=== PATIENT | female | born 1990 | race Caucasian/White ===

== ENCOUNTER → 2020-02-12 14:40 | Outpatient (CLI) | payer BC, SELFPAY ==
[2020-02-12 16:12] LABS: Free T3 2.6 pg/mL (2.18-3.98); T4 Free Direct 0.98 ng/dL (0.76-1.46); T4 Total, Thyroxin 7.4 ug/dL (4.8-13.9); Thyroid Stim Hormone (TSH) 1.96 uIU/mL (0.358-3.74)
[2020-02-18 14:08] LABS: Age Gdln ACOG Testing 21-29 (.)
[2020-02-18 15:57] LABS: HPV Reflexed? NOT INDICATED
== END ==
PROVIDERS: Visit Provider Obstetrics & Gynecology
DX: Z12.4 Encounter for screening for malignant neoplasm of cervix (principal); Z83.49 Family history of other endocrine, nutritional and metabolic diseases; L65.9 Nonscarring hair loss, unspecified; R45.86 Emotional lability
CPT/HCPCS: 36415; 84436; 84439; 84443; 84481; 88175; G0145